=== PATIENT | male | born 1960 ===

== ENCOUNTER 2020-03-01 05:48 | Day surgery (SDC) | payer OTHER ==
[~2020-03-01] VITALS: Ht 172.7 cm; Wt 77.5 kg
[2020-03-01] VITALS (8 sets, daily range): BP systolic 120–141; BP diastolic 62–81; PULSE 61–79; TEMP 97.2–97.7
[2020-03-01] MEDS ORDERED: DIABETA 5MG5 MG/TAB PO (06:30)
[2020-03-01] MEDS ORDERED: LEVAQUIN 5500 MG/TA1 PO (06:30)
[2020-03-01] MEDS ORDERED: FLOMAX 0.40.4 MG/CAP PO (06:31)
[2020-03-01] MEDS ORDERED: GLUCOPHAGE1000 MG PO (06:31)
--- NOTE | 2020-03-01 09:50 | NUR ---
Patient returns to room 7 per cart from PACU accompanied by Juliane BETHEA and is awake and alert. Room air sats 93% and temp 97.7. Dressing clean and dry on to the incisional areas. IV fluids infusing. Spouse in room. Call light in reach and allowed to rest.
--- NOTE | 2020-03-01 10:05 | NUR ---
Room air sats down to 88%. Placed on oxygen at 2L per nasal cannula and sats up to 93%. Resting and sips on water and coffee.
[2020-03-01] MEDS ORDERED: NORCO 325 MG-51 TAB PO (10:10)
[2020-03-01] MEDS ORDERED: CEPHALEXIN500 M1 PO (10:11)
--- NOTE | 2020-03-01 10:20 | NUR ---
Continues to rest. Denies need for pain medications.
--- NOTE | 2020-03-01 10:35 | NUR ---
More awake and sitting up drinking coffe and water. Denies pain or nausea. Oxygen removed and sats 100%.
--- NOTE | 2020-03-01 10:50 | NUR ---
Offered snack. States he prefers to eat after discharge. Drinking second cup of coffee and more water. Continues to deny nausea. Spouse remains in the room.
--- NOTE | 2020-03-01 11:05 | NUR ---
IV converted to INT. Assisted up to the bathroom and gait is steady. Voids and returns to room. Patient dresses self.
--- NOTE | 2020-03-01 11:25 | NUR ---
Medicated with Percocet 5mg tab for complaints of burning sensation. Given dismissal instructions and voices understanding of these. INT needle discontinued and site is free of redness.
--- NOTE | 2020-03-01 11:37 | NUR ---
Patient dismissed to home driven by spouse and taken to the front door per wheelchair by this RN with instructions in hand.
== END 2020-03-01 11:37 | disposition home or self-care (01) ==
LOC: SDCO 05:48
DX: C60.9 Malignant neoplasm of penis, unspecified (principal); A63.0 Anogenital (venereal) warts; I10 Essential (primary) hypertension; I25.2 Old myocardial infarction; E11.9 Type 2 diabetes mellitus without complications; Z79.4 Long term (current) use of insulin; F17.210 Nicotine dependence, cigarettes, uncomplicated; E03.9 Hypothyroidism, unspecified
CPT/HCPCS: J0690; J2405; J2704; J3010; J7030; J7120